=== PATIENT | female | born 1950 | race Caucasian/White ===

== ENCOUNTER 2018-12-17 19:05 | Emergency (ER) | payer OTHER ==
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
[2018-12-17] MEDS ORDERED: ACETAMINOPHEN 500 MG TAB PO ONE (19:51)
[2018-12-17] MEDS ORDERED: NS 1,000 ML IV ONE (20:51)
[2018-12-17 21:14] LABS: PLATELET COUNT 228 10^3/uL (150-400)
[2018-12-17] MEDS ORDERED: IOPAMIDOL (ISOVUE-300) 100 ML BTL ONE (21:20)
[2018-12-17 23:06] VITALS: BP 155/85
== END 2018-12-17 23:15 | disposition home or self-care (01) ==
LOC: EDUNIT#
DX: S89.92XA Unspecified injury of left lower leg, initial encounter (principal); S19.9XXA Unspecified injury of neck, initial encounter; R51 Headache; K80.20 Calculus of gallbladder without cholecystitis without obstruction; I10 Essential (primary) hypertension; V49.49XA Driver injured in collision with other motor vehicles in traffic accident, initial encounter; Y92.9 Unspecified place or not applicable; Y99.9 Unspecified external cause status; Y93.9 Activity, unspecified; Z96.652 Presence of left artificial knee joint
CPT/HCPCS: 82435-PO; 82565-PO; 82947-PO; 84132-PO; 84295-PO; 84520-PO; 85014-ER; Q9967